=== PATIENT | male | born 1955 | race Caucasian/White ===

== ENCOUNTER 2018-11-04 05:27 | Day surgery (SDC) | payer BC ==
--- NOTE | 2018-10-30 15:57 | HP ---
Date/Time of Note Date/Time of Note DATE: 10/30/18 TIME: 15:43 Assessment/Plan VTE Prophylaxis SCD applied (from Ns): Yes SCD contraindicated: low risk/ambulating Pharmacological prophylaxis: heparin Assessment/Plan Problems: (1) Preop examination Status: Acute Comment: Please see the consultation from cardiology. Given that they are strongly of the opinion that we should not stop the aspirin and Brilinta his lungs were willing to proceed in the setting of these anticoagulants for this limited procedure that I am in agreement this patient is appropriate and ready for surgery. He has an average surgical risk as compared to his age-matched peers. Using the modified Bello's criteria given that he has been asymptomatic and has already had the revascularization he is at average risk. My main concern will be for his sleep apnea and any possible bleeding sequela. (2) Status post percutaneous transluminal coronary angioplasty Comment: Please see notes from cardiology (3) Coronary artery disease Status: Acute Comment: Please see copy of the cardiology consultation attached to this Qualifiers: Coronary Disease-Associated Artery/Lesion type: [place] artery [place] vs. tr ansplanted heart: [place] heart Associated angina: without angina Qualified Codes: I25.10 - Atherosclerotic heart disease of [place] coronary artery without angina pectoris (4) Obstructive sleep apnea Status: Chronic Comment: Noted. Please consider using BiPAP until he is fully awake after surgery (5) Diabetes mellitus type 2 in obese Status: Chronic Comment: Adequate control on a straightforward regimen (6) Essential hypertension Status: Chronic Comment: Adequate control. Continue same (7) Hyperlipidemia associated with type 2 diabetes mellitus Status: Chronic Comment: Stable on full dose statin therapy. (8) Erectile dysfunction Status: Chronic Comment: Noted. Qualifiers: Erectile dysfunction type: vasculogenic Vasculogenic erectile dysfunction type: due to arterial insufficiency Qualified Codes: N52.01 - Erectile dysfun ction due to arterial insufficiency (9) Testicular hypofunction Status: Chronic Comment: Stable at this time. Not on replacement therapy due to the history of prostate carcinoma (10) Prostate cancer Onset Date: ~ 10/2013 Status: Chronic Comment: Stable and without evidence of reactivation (11) Status post prostatectomy Status: Chronic Comment: Noted. (12) S/P carpal tunnel release Status: Chronic Comment: Noted. (13) Status post lumbar discectomy Status: Chronic Comment: Noted. No need for therapeutic changes (14) H/O arthroscopy of left knee Status: Chronic Comment: Noted. CC: LEIF TAY MD; ITA MALLOY MD ; HPI/ROS Admit Date/Time Admit Date/Time November 04, [address] Leif Tay Hx of Present Illness 63-year-old male who is being brought in electively for arthroscopic repair of the right meniscus. He has had knee pain for some time is failed all conservative attempts at treatment. ROS Constitutional: no complaints (No fevers chills or sweats) Eyes: no complaints ENT: no complaints Respiratory: no complaints Cardiovascular: no complaints (Note recent cardiac history) Gastrointestinal: no complaints Genitourinary: no complaints Musculoskeletal: other (Right knee pain with some limited range of motion) Skin: no complaints Neurologic: no complaints Endocrine: no complaints PMH/Family/Social Past Medical History Medical History: cancer (Prostate), coronary artery disease, diabetes (Type II), high cholesterol, hypertension, other (Nonalcoholic fatty liver disease; history of retinal detachment on the left side x2; testicular hypofunction; history of renal stones; obesity; torn meniscus right knee; obstructive sleep apnea; overactive bladder) Medications Bystolic 10 mg once a day; Brilinta 90 mg twice daily; aspirin 81 mg once a day; bupropion XL 300 mg every morning; ask citalopram 20 mg once a day; losartan 100 mg once a day; metformin 1 g twice daily; Myrbetriq 25 mg nightly; atorvastatin 80 mg a day; his CPAP device Coded Allergies: No Known Allergy (Unverified , 10/30/18) Past Surgical History Past Surgical Hx: other (Status post percutaneous coronary intervention August 2008; status post bilateral tear duct plugging: Status post right carpal tunnel release; status post lumbar discectomy; status post left knee arthroscopy; status post prostatectomy February 11, 2012; status post Lasix vision correction surgery; status post laser treatments to the left retina for detachment) Family History Significant Family History: heart disease, diabetes, hypertension Social History lives with spouse recently. Please note he is planning to move out of the [place] and next 3 months. Alcohol Use: none Smoking Status: Never smoker Drug Use: none Exam/Review of Systems Vital Signs Vitals Height 5 feet 6 inches, weight 199 pounds, temperature 98.6, respiratory rate 18, pulse 60, blood pressure 140/80 Exam Constitutional: alert, oriented Psych: anxiety Head: normocephalic, atraumatic Eyes: nl conjunctiva, EOMI, nl lids, nl sclera, PERRL ENMT: nl external ears & nose, nl lips & teeth, nl nasal mucosa & septum, mucosa pink and moist Neck: supple, non-tender, other (Normal thyroid; no bruits) Respiratory: clear to auscultation, normal air movement Cardiovascular: regular rate and rhythm, nl pulses Gastrointestinal: soft, nl liver, spleen, non-tender Musculoskeletal: nl extremities to inspection, nl gait and stance Extremities: normal pulses Neurological: MOLD FINISHER II-XII intact, nl mental status, nl speech, nl strength Skin: nl NAS Chowdary MD Oct 30, 2018 15:56
[2018-11-04] VITALS (23 sets, daily range): BP systolic 117–165; BP diastolic 61–83; PULSE 54–58; RESP 12–20
[2018-11-04] MEDS ORDERED: ROPIVACAINE 0.5 % 30 ML VIAL ONE (07:00)
--- NOTE | 2018-11-04 07:18 | PREAC ---
Date/Time of Note Date/Time of Note DATE: 11/04/18 TIME: 07:16 Anesthesia Eval and Record Evaluation Time Pre-Procedure Interview DATE: 11/04/18 TIME: 07:16 Age 63 Sex male NPO: 8 hrs Preoperative diagnosis Rt knee meniscus tear Planned procedure Rt knee operative arthroscopy amd meniscectomy Past Medical History Past Medical History: Includes Cardio: HTN, Dyslipidemia, [place], CAD GI: Morbid obesity Surgery & Anesthesia Issues No known issue Meds Anticoagulation: Yes Beta Alex within 24 hr: No Reason Beta Alex not given: Pt. not on B-Alex Meds reviewed: Yes Allergies Coded Allergies: No Known Allergy (Unverified , 10/30/18) Allergies Reviewed: Yes Labs/Studies Labs Reviewed: Reviewed by anesthesiologist test: N/A Studies: ECG Pre-procedure Exam Last vitals Vital Signs Date Temp Pulse Resp B/P (MAP) Pulse Ox O2 O2 Flow FiO2 Time Delivery Rate 11/04/18 98.6 57 18 165/83 05:35 (110) Airway: Adequate mouth opening, Adequate thyromental dist Mallampati: Mallampati III Teeth: Normal Lung: Normal Heart: Normal ASA Physical Status ASA physical status: 3 Emergency: None Planned Anesthetic General/MAC: ETT Planned Pain Management Parenteral pain med Pre-operative Attestations Prior to commencing anesthesia and surgery, the patient was re-evaluated, there was verification of: *The patient's identity *The results of appropriate recent lab work and preoperative vital signs *The above evaluation not changing prior to induction *Anesthetic plan, risk benefits, alternative and complications discussed with patient/family; questions answered; patient/family understands, accepts and wishes to proceed. DEVENDRA SALCIDO MD Nov 04, 2018 07:18
[2018-11-04] MEDS ORDERED: MIDAZOLAM 1 MG/ML 2 ML INJ ONE (07:28)
[2018-11-04] MEDS ORDERED: ETOMIDATE 20 MG INJ ONE (09:10)
[2018-11-04] MEDS ORDERED: ROCURONIUM 50 MG INJ ONE (09:10)
[2018-11-04] MEDS ORDERED: PROPOFOL 20 ML ONE (09:10)
[2018-11-04] MEDS ORDERED: METOCLOPRAMIDE 10 MG INJ ONE (09:11)
[2018-11-04] MEDS ORDERED: ONDANSETRON 4 MG INJ ONE (09:11)
[2018-11-04] MEDS ORDERED: CEFAZOLIN 1 GM INJ ONE (09:12)
--- NOTE | 2018-11-04 09:24 | NUR ---
NURSING RR RECEIVED PT FROM OR NOT IN ANY DISTRESS .PT S/P RIGHT ANTROSCOPY .NEURO VASCULAR CHECK DONE AND IT IS INTACT .PEDAL PULSE +3,GOOD CAP REFILL .IV TO R FA G20 NEEDLE WITH LR INFUSING WELL .
--- NOTE | 2018-11-04 09:38 | PAC ---
Date/Time of Note Date/Time of Note DATE: 11/04/18 TIME: 09:37 Post-Anesthesia Notes Post-Anesthesia Note Last documented vital signs Vital Signs Date Temp Pulse Resp B/P (MAP) Pulse Ox O2 O2 Flow FiO2 Time Delivery Rate 11/04/18 54 18 130/80 100 Mask 6.0 09:29 (97) 11/04/18 98.3 09:24 Activity: WNL Respiratory function: WNL Cardiovascular function: WNL Mental status: Baseline Pain reasonably controlled: Yes Hydration appropriate: Yes Nausea/Vomiting absent: Yes Comments BP:140/67, pulse:78, spo2:100%, T:98 DEVENDRA SALCIDO MD Nov 04, 2018 09:38
[2018-11-04] MEDS: HYDROmorphONE 1 MG/5 ML IV SYRINGE IV PRN ×2 (09:48→09:55)
[2018-11-04] MEDS ORDERED: HYDROmorphONE 1 MG/5 ML IV SYRINGE IV PRN (10:00)
[2018-11-04] MEDS ORDERED: FENTAnyl 50 MCG/ML VIAL IV PRN (10:00)
[2018-11-04] MEDS ORDERED: MEPERIDINE 25 MG INJ IV PRN (10:00)
[2018-11-04] MEDS ORDERED: METOCLOPRAMIDE 10 MG INJ IV PRN (10:00)
[2018-11-04] MEDS ORDERED: LABETALOL HCL 20MG INJ IV PRN (10:00)
[2018-11-04] MEDS ORDERED: ONDANSETRON 4 MG INJ IV PRN ×2 (10:00→10:30)
[2018-11-04] MEDS ORDERED: DIPHENHYDRAMINE 50 MG INJ IV PRN (10:00)
[2018-11-04] MEDS ORDERED: hydrALAzine 20 MG INJ IV PRN (10:00)
[2018-11-04] MEDS ORDERED: SOD CHLORIDE 0.9% 1,000 ML IV SCH (10:06)
--- NOTE | 2018-11-04 10:18 | OPPN ---
Date/Time of Note Date/Time of Note DATE: 11/04/18 TIME: 10:14 Operative Report Preoperative Diagnosis Right knee medial meniscal tear Postoperative Diagnosis Right knee medial meniscal tear, lateral meniscal tear, chondrocalcinosis of the meniscus, Grade I-II chondromalacia Operation/Procedure Performed Right knee partial medial menisectomy, partial lateral meniscectomy, chondroplasty Surgeon see signature line video production assistant Nory Julian PA-C Anesthesia: general Estimated blood loss: minimal Transfusion Required none Specimen none Grafts/Implants none Complications none ERIKA DIAZ MD Nov 04, 2018 10:18
[2018-11-04] MEDS ORDERED: morphine 2 MG INJ IV PRN (10:30)
[2018-11-04] MEDS ORDERED: OXYCODONE/ACETAMINOPHEN (5/325) TAB PO PRN ×2 (10:30)
--- NOTE | 2018-11-04 11:30 | NUR ---
NURSING RR PT D/C HOME WITH WRITTEN D/C INSTRUCTION GIVEN TO PATIENT AND .ENCOURAGE TO VERBALIZE QUESTIONS AND CONCERNS .INSTRUCTED HOW TO CONNECT POLAR CARE AT HOME , VERBALIZING UNDERSTANDING .PAIN MEDICATION RX WAS GIVEN PRIOR TO SURGERY BY DOCTOR RODRIGUEZ .CARE PROVIDED PER [facility] STANDARDS.
--- NOTE | 2018-11-04 13:41 | OPR ---
DATE OF OPERATION: 11/04/2018 PREOPERATIVE DIAGNOSIS: Complex tear of medial meniscus, right knee. POSTOPERATIVE DIAGNOSES: 1. Complex tear of medial meniscus, right knee. 2. Tear of the lateral meniscus. 3. Chondrocalcinosis of both menisci. 4. Chondromalacia grade I to II of the medial and lateral compartments. 5. Chondromalacia grade II of the patellofemoral compartment. OPERATION PERFORMED: 1. Arthroscopy, right knee. 2. Partial medial meniscectomy. 3. Partial lateral meniscectomy. 4. Chondroplasty patellofemoral joint. SURGEON: Erika Tay MD, MARKETING ROTATION ASSOCIATE: AMAURI Martinez ANESTHESIA: General. TOURNIQUET TIME: Zero. DESCRIPTION OF PROCEDURE: The patient taken to the operating room and placed in supine position. Sa tisfactory general anesthesia was administered, 2 grams Ancef intravenously. The right knee was prep ped and draped in usual manner. Exam under anesthesia revealed full range of motion, AP drawer and L achman 1+, pivot shift negative. No varus-valgus instability. Standard arthroscopic portals were used. Undersurface of the patella had some grade II chondromalaci a. Trochlea was relatively smooth with grade I chondromalacia. Medial synovial shelf was normal. L ateral gutter had no loose bodies. Lateral compartment was entered. There was diffuse chondrocalcin osis with some degenerative tearing of the lateral meniscus, particularly in the mid zone and posteri or horn. Grade I and II chondromalacia of the articular surfaces. Anterior and posterior cruciates were intact, origins and insertions. Medial compartment was entered. There was chondrocalcinosis en tire medial meniscus with a large horizontal cleavage tear from the mid zone of the posterior horn. Probe was inserted. The tear was palpated. Using curved and straight baskets, the tear was sauceriz ed from the mid zone of the posterior horn. Shaver was used to smooth and contour the edges and lilia ve all loose debris. Once a stable rim have been achieved, the arthroscope maneuvered posteromediall y. No other abnormalities were seen. The anterior and posterior cruciates were palpated were intact . Lateral meniscus was palpated. The tear was saucerized from the posterior horn to the anterior ho rn. Shaver was used to smooth and contour the edges further to a stable rim. Chondroplasty performe d along the patellofemoral joint. Knee was irrigated clear. Wounds closed with Steri-Strips, infilt rated with 0.5% Rupivacaine. Compression dressing and an ice pack were applied. Patient brought to recovery room in stable condition. At the end of procedure sponge and needle count was correct. The patient tolerated procedure well. Dictated By: ERIKA GOMEZ/[place] Conf#: [id number] DID#: [id number]
--- NOTE | 2018-11-04 15:09 | OPR ---
DATE OF OPERATION: 11/04/2018 ADDENDUM: FLOOR ASSEMBLER ORTHOPEDIC SURGEON: During the procedure, an him assistant was used. The him assistant helped wit h distraction and manipulating the knee and also with manipulating the arthroscope and assisting in t he entire procedure. Without a skilled him assistant, this could not be on there should be compensated a ppropriately. Dictated By: ERIKA DIAZ MD RF/[place] Conf#: [id number] DID#: [id number]
== END 2018-11-04 11:30 | disposition home or self-care (01) ==
LOC: SDS 05:27
PROVIDERS: ATTEND Orthopaedic Surgery
DX: S83.231A Complex tear of medial meniscus, current injury, right knee, initial encounter (principal); S83.281A Other tear of lateral meniscus, current injury, right knee, initial encounter; X58.XXXA Exposure to other specified factors, initial encounter; M94.261 Chondromalacia, right knee; E11.9 Type 2 diabetes mellitus without complications
CPT/HCPCS: 29880; J0690; J1170; J2250; J2405; J2765; J2795; J3010

== ENCOUNTER → 2018-11-08 | Outpatient (CLI) | payer BC | END | disposition home or self-care (01) | LOC: RAD 16:51 | PROVIDERS: ATTEND Orthopaedic Surgery | DX: M79.604 Pain in right leg (principal) | CPT/HCPCS: 93971 ==